=== PATIENT | female | born 1990 | race Caucasian/White ===

== ENCOUNTER 2017-07-25 06:20 | Emergency (ER) | payer SELFPAY ==
[~2017-07-25] VITALS: Ht 160 cm; Wt 56.0 kg
[2017-07-25 06:37] LABS: APPEARANCE SL.HAZY ((CLEAR)); BILIRUBIN NEGATIVE; BLOOD NEGATIVE; COLOR YELLOW ((YELLOW)); GLUCOSE (STRIP) NEGATIVE; KETONES NEGATIVE; LEUKOCYTES NEGATIVE; NITRITE NEGATIVE; PROTEIN (STRIP) NEGATIVE; SPECIFIC GRAVITY 1.019 (1.000-1.030)
[2017-07-25 06:41] LABS: BACTERIA RARE /HPF; EPITHELIAL CELLS 2+ /HPF; MUCUS TRACE /LPF; RED BLOOD CELLS 0-5 /HPF (0-5); UCUL ADDED? NO; WHITE BLOOD CELLS 0-5 /HPF (0-5)
[2017-07-25 06:46] LABS: HEMATOCRIT 41.6 % (36.0-46.0); HEMOGLOBIN 14.3 G/DL (11.9-15.5); MCH 31.4 PG (29.0-34.0); MCHC 34.4 G/DL (30.0-36.0); MCV 91.2 FL (83-99); PLATELET COUNT 214 K/uL (156-360); RBC DIS.WIDTH-CV 12.6 % (11.8-14.6); RED BLOOD COUNT 4.56 M/uL (3.80-5.20); WHITE BLOOD COUNT 9.1 K/uL (4.1-10.2)
[2017-07-25 07:29] LABS: ALBUMIN 4.3 G/DL (3.2-4.8); ALKALINE PHOSPHATASE 42 IU/L (3-129); ALT (GPT) 9 IU/L (3-49); AST (GOT) 21 IU/L (2-34); CHLORIDE 107 MEQ/L (99-109); CREATININE 0.8 MG/DL (0.6-1.3); GFR ESTIMATE (CALCULATED) > 59 mL/min/; GLUCOSE 88 mg/dL (70-99); LIPASE 19 U/L (1.0-51.0); SODIUM 139 MEQ/L (136-147); TOTAL BILIRUBIN 0.9 MG/DL (0.0-1.0); UREA NITROGEN (BUN) 14 mg/dL (9-23)
[2017-07-25 07:33] LABS: QUANTITATIVE HCG < 4.0 MIU/ML
[2017-07-25] MEDS ORDERED: IMODIUM A-D2 M2 PO (08:48)
[2017-07-25] MEDS ORDERED: ZOFRAN4 MG PO (08:48)
[2017-07-25] MEDS ORDERED: BENTYL20 MG PO (08:48)
[2017-07-25 09:50] VITALS: BP 97/72
== END 2017-07-25 09:50 | disposition home or self-care (01) ==
LOC: EME 06:20
DX: K52.9 Noninfective gastroenteritis and colitis, unspecified (principal); Z87.442 Personal history of urinary calculi; F17.200 Nicotine dependence, unspecified, uncomplicated
CPT/HCPCS: 80053; 81003; 83690; 84702; 85027; 99281; 99285; J1885; J2405; J7030

== ENCOUNTER 2017-09-06 09:19 | Emergency (ER) | payer SELFPAY ==
[~2017-09-06] VITALS: Ht 160 cm; Wt 56.0 kg
[~2017-09-06 09:19] MED LIST: BENTYL20 MG PO; IMODIUM A-D2 M2 PO; ZOFRAN4 MG PO
[2017-09-06 09:21] VITALS: BP 120/77
== END 2017-09-06 10:48 | disposition left against medical advice (07) ==
LOC: EME 09:19
DX: M54.89 Other dorsalgia (principal); Z53.21 Procedure and treatment not carried out due to patient leaving prior to being seen by health care provider